=== PATIENT | female | born 1990 | race Caucasian/White ===

== ENCOUNTER 2016-05-12 11:57 | Day surgery (SDC) | payer OTHER ==
[~2016-05-12] VITALS: Ht 157.5 cm; Wt 129.7 kg
[~2016-05-12 11:57] MED LIST: AMBIEN CR12.5 MG PO; AMBIEN10 MG PO; ATENOLOL25 MG PO; BACTRIM,SEPT1 TABLET PO; BUPROPION HCL75 MG PO; CARAFATE1 GM PO; CLEOCIN300 MG PO; DEPO-PROVER150 MG/ML IM; DOXEPIN HCL50 MG PO; EFFEXOR25 MG PO; EFFEXOR50 MG PO; FIORICET,ESG1 TABLET PO; LAMICTAL25 MG PO; MACROBID100 MG PO; MEDROXYPRO150 MG/1 M IM; METHOCARBAMOL500 MG PO; NAPROXEN500 MG PO; NOHOMEMEDS; OXECTA5 MG PO; PEPCID40 MG/5 ML PO; PHENERGAN25 MG PR; PRILOSEC OTC20 MG PO; PROMETHAZINE HC25 M1 PO; PROVENTIL HFA6.7 GM IH; PYRIDIUM200 MG PO; QUETIAPINE FUM400 MG PO; REMERON45 MG PO; RISPERDAL1 MG PO; RISPERDAL2 MG PO; SEROQUEL200 MG PO; SEROQUEL400 MG PO; SERTRALINE HCL100 MG PO; TORADOL10 MG PO; TRAMADOL HCL50 MG PO; ULTRAM50 MG PO; VENTOLIN HFA18 GM IH; XANAX2 MG PO; ZOFRAN ODT8 MG PO; ZOFRAN4 MG PO; ZOLOFT100 MG PO
== END 2016-05-12 14:50 | disposition home or self-care (01) ==
LOC: PAIN 11:57 → SDC 13:00 → PAIN 13:00
DX: M47.896 Other spondylosis, lumbar region (principal); M54.5 Low back pain; Z79.891 Long term (current) use of opiate analgesic; E66.1 Drug-induced obesity; M79.1 Myalgia
CPT/HCPCS: J1030; J2250; J3010; S0020

== ENCOUNTER 2016-05-19 10:43 | Day surgery (SDC) | payer OTHER ==
[~2016-05-19] VITALS: Ht 157.5 cm; Wt 129.7 kg
[~2016-05-19 10:43] MED LIST changes: +RELAFEN500 M1 PO
== END 2016-05-19 14:00 | disposition home or self-care (01) ==
LOC: PAIN 10:43 → SDC 12:30 → PAIN 12:30
PROC: 015B3ZZ Destruction of Lumbar Nerve, Percutaneous Approach (ICD-10-PCS; principal; 2016-05-19)
DX: M47.816 Spondylosis without myelopathy or radiculopathy, lumbar region (principal); M54.5 Low back pain; F41.9 Anxiety disorder, unspecified; M79.1 Myalgia; F17.200 Nicotine dependence, unspecified, uncomplicated; E66.01 Morbid (severe) obesity due to excess calories; Z68.43 Body mass index [BMI] 50.0-59.9, adult; F31.9 Bipolar disorder, unspecified; I10 Essential (primary) hypertension; Z88.0 Allergy status to penicillin; Z88.1 Allergy status to other antibiotic agents; Z88.8 Allergy status to other drugs, medicaments and biological substances
CPT/HCPCS: J1030; J2250; J3010; S0020